=== PATIENT | male | born 1970 | race Caucasian/White ===

== ENCOUNTER → 2019-02-12 | Outpatient (CLI) | payer OTHER | END | disposition home or self-care (01) | LOC: LAB 07:36 | DX: E11.9 Type 2 diabetes mellitus without complications (principal); I10 Essential (primary) hypertension; E03.8 Other specified hypothyroidism; E78.2 Mixed hyperlipidemia; R07.89 Other chest pain; M81.0 Age-related osteoporosis without current pathological fracture; N40.0 Benign prostatic hyperplasia without lower urinary tract symptoms ==

== ENCOUNTER → 2019-02-14 | Outpatient (CLI) | payer OTHER | END | disposition home or self-care (01) | LOC: NUCLEAR 07:00 | DX: R07.89 Other chest pain (principal) ==

== ENCOUNTER 2019-05-07 07:27 | Emergency (ER) | payer OTHER ==
[~2019-05-07] VITALS: Ht 162.6 cm; Wt 68.0 kg
== END 2019-05-07 11:11 | disposition home or self-care (01) ==
LOC: ER 07:27
DX: M54.5 Low back pain (principal)

== ENCOUNTER 2019-05-31 13:23 | Emergency (ER) | payer OTHER ==
[~2019-05-31] VITALS: Ht 162.6 cm; Wt 68.0 kg
[2019-05-31] MEDS ORDERED: VALACYCLOVIR1000 MG PO (15:31)
[2019-05-31] MEDS ORDERED: GABAPENTIN300 MG PO (15:31)
== END 2019-05-31 15:47 ==
LOC: ER 13:23
DX: B02.8 Zoster with other complications (principal)

== ENCOUNTER 2019-09-09 09:24 | Emergency (ER) | payer OTHER ==
[~2019-09-09] VITALS: Ht 162.6 cm; Wt 68.0 kg
[~2019-09-09 09:24] MED LIST: GABAPENTIN300 MG PO; VALACYCLOVIR1000 MG PO
[2019-09-09] MEDS ORDERED: KETO10TA2 PO (12:33)
[2019-09-09] MEDS ORDERED: SKELAXIN800 MG PO (12:33)
== END 2019-09-09 12:53 | disposition home or self-care (01) ==
LOC: ER 09:24
DX: M62.830 Muscle spasm of back (principal)

== ENCOUNTER 2020-08-15 09:02 | Emergency (ER) | payer OTHER ==
[~2020-08-15] VITALS: Ht 162.6 cm; Wt 68.0 kg
[~2020-08-15 09:02] MED LIST changes: +KETO10TA2 PO; +SKELAXIN800 MG PO
[2020-08-15] MEDS ORDERED: PROTONIX40 MG (09:21)
== END 2020-08-15 10:35 | disposition home or self-care (01) ==
LOC: ER 09:02
DX: M54.41 Lumbago with sciatica, right side (principal)

== ENCOUNTER 2021-09-11 20:06 | Emergency (ER) | payer OTHER ==
[~2021-09-11] VITALS: Ht 162.6 cm; Wt 70.3 kg
[~2021-09-11 20:06] MED LIST changes: +PROTONIX40 MG
[2021-09-11] MEDS ORDERED: VITAMIN C100 MG PO (20:09)
== END 2021-09-11 22:56 | disposition home or self-care (01) ==
LOC: ER 20:06
DX: M54.40 Lumbago with sciatica, unspecified side (principal); M62.830 Muscle spasm of back

== ENCOUNTER 2022-10-17 12:44 | Emergency (ER) | payer OTHER ==
[~2022-10-17] VITALS: Ht 162.6 cm; Wt 65.8 kg
[~2022-10-17 12:44] MED LIST changes: +VITAMIN C100 MG PO
== END 2022-10-17 17:10 | disposition home or self-care (01) ==
LOC: ER 12:44
DX: M53.86 Other specified dorsopathies, lumbar region (principal)